=== PATIENT | male | born 1960 | race Caucasian/White ===

== ENCOUNTER → 2019-05-05 08:51 | Outpatient (BNVA) | payer SELFPAY | PROVIDERS: Family Provider Family Medicine; PCP Family Medicine; Visit Provider Nurse Practitioner Family | DX: E11.9 Type 2 diabetes mellitus without complications (principal); I10 Essential (primary) hypertension; E78.5 Hyperlipidemia, unspecified | CPT/HCPCS: 80053; 80061; 83036; 85025 ==

== ENCOUNTER → 2019-08-26 16:41 | Outpatient (BNVA) | payer SELFPAY | PROVIDERS: Family Provider Family Medicine; PCP Family Medicine; Visit Provider Nurse Practitioner | DX: E11.65 Type 2 diabetes mellitus with hyperglycemia (principal); E78.5 Hyperlipidemia, unspecified; I10 Essential (primary) hypertension; E11.9 Type 2 diabetes mellitus without complications | CPT/HCPCS: 80053; 80061; 81000; 83036; 83721 ==

== ENCOUNTER → 2019-11-27 10:07 | Outpatient (BNVA) | payer SELFPAY | PROVIDERS: Family Provider Family Medicine; PCP Family Medicine; Visit Provider Nurse Practitioner | DX: E11.65 Type 2 diabetes mellitus with hyperglycemia (principal); I10 Essential (primary) hypertension; E78.2 Mixed hyperlipidemia | CPT/HCPCS: 80053; 80061; 81000; 83036 ==

== ENCOUNTER → 2020-10-12 08:19 | Outpatient (BNVA) | payer SELFPAY | PROVIDERS: Family Provider Family Medicine; PCP Nurse Practitioner; Visit Provider Nurse Practitioner | DX: Z01.89 Encounter for other specified special examinations (principal) ==

== ENCOUNTER → 2020-12-22 15:25 | Outpatient (BNVA) | payer OTHER, SELFPAY | PROVIDERS: Family Provider Family Medicine; PCP Nurse Practitioner; Visit Provider Nurse Practitioner Family | DX: Z20.822 Contact with and (suspected) exposure to COVID-19 (principal); J06.9 Acute upper respiratory infection, unspecified; U07.1 COVID-19 | CPT/HCPCS: 87426 ==

== ENCOUNTER 2020-12-24 11:04 | Outpatient (CLI) | payer OTHER, SELFPAY | END 2020-12-24 11:05 | disposition home or self-care (01) | LOC: OPS 11:13 | PROVIDERS: PCP Nurse Practitioner; Visit Provider Nurse Practitioner | DX: U07.1 COVID-19 (principal) | CPT/HCPCS: 96365 ==

== ENCOUNTER → 2021-04-05 09:34 | Outpatient (BNVA) | payer SELFPAY | PROVIDERS: PCP Nurse Practitioner; Visit Provider Dermatology | DX: Z01.89 Encounter for other specified special examinations (principal) ==

== ENCOUNTER → 2021-10-04 10:14 | Outpatient (BNVA) | payer SELFPAY | PROVIDERS: PCP Nurse Practitioner; Visit Provider Dermatology | DX: Z01.89 Encounter for other specified special examinations (principal) ==

== ENCOUNTER 2022-02-18 16:42 | Emergency (ER) | payer SELFPAY ==
[2022-02-18 16:51] VITALS: BP 114/73; PULSE 77; RESP 15; TEMP 36.6; O2SAT 96; BMI 31.1
[2022-02-18 17:05] LABS: Glucose Point of Care 107 mg/dL (70-110)
[2022-02-18 17:47] VITALS: BP 130/82; PULSE 76; RESP 17; O2SAT 95
[2022-02-18 17:58] LABS: Basophils # 0.1 10^3/uL (0.0-0.1); Basophils % 0.9 %; Eosinophils # 0.3 10^3/uL (0.0-0.8); Eosinophils % 2.2 %; Lymphocytes # 2.3 10^3/uL (0.8-4.8); Lymphocytes % 18.2 %; Mean Corpuscular HGB Conc 34.1 g/dL (30.0-36.0); Mean Corpuscular Hemoglobin 30.7 pg (28.0-34.0); Mean Corpuscular Volume 90.2 fl (80-94); Mean Platelet Volume 9.8 fL (7.4-10.4); Monocytes # 0.8 10^3/uL (0.2-0.9); Monocytes % 6.3 %; Neutrophils # 9.02 10^3/uL (1.8-7.7); Neutrophils % 72.1 %; Nucleated Red Blood Cells % 0 %; Platelet Count 231 10^3/cmm (130-400); Red Blood Count 4.88 10^6/uL (4.1-5.3); Red Cell Distribution Width 13.3 % (12.1-15.1); White Blood Count 12.5 10^3/uL (4.0-10.0)
--- NOTE | 2022-02-18 18:10 | XRR_ITS ---
PROCEDURE INFORMATION: Exam: XR Chest Exam date and time: 02/18/2022 6:21 PM Age: 61 years old Clinical indication: Chest wall pain; Additional info: Cp TECHNIQUE: Imaging protocol: Radiologic exam of the chest. Views: 1 view. COMPARISON: CR XR chest 1V [id number] 02/03/2019 7:18 PM FINDINGS: Lungs: Unremarkable. No consolidation. Pleural spaces: Unremarkable. No pleural effusion. No pneumothorax. Heart/Mediastinum: Unremarkable. No cardiomegaly. Bones/joints: Unremarkable. XR/XR chest 1V portable [id number] IMPRESSION: No acute findings.
--- NOTE | 2022-02-18 18:10 | CTR_ITS ---
PROCEDURE INFORMATION: Exam: CT Abdomen And Pelvis With Contrast Exam date and time: 02/18/2022 6:46 PM Age: 61 years old Clinical indication: Abdominal pain; Localized; Lower; Prior surgery; Surgery type: Hernia repair; Additional info: Lower abdominal pain, constipation and nausea TECHNIQUE: Imaging protocol: Computed tomography of the abdomen and pelvis with contrast. Radiation optimization: All CT scans at this facility use at least one of these dose optimization techniques: automated exposure control; mA and/or kV adjustment per patient size (includes targeted exams where dose is matched to clinical indication); or iterative reconstruction. Contrast material: OMNI 350; Contrast volume: 100 ml; Contrast route: INTRAVENOUS (IV); COMPARISON: CR (CHEST, ) 02/18/2022 6:21 PM RADIATION DOSE METRICS: Total DLP (mGy-cm): 843.6 FINDINGS: Lungs: Emphysematous changes. Bibasilar atelectasis. Diaphragm: Small hiatal hernia. Liver: Normal. No mass. Gallbladder and bile ducts: Normal. No calcified stones. No ductal dilation. Pancreas: Normal. No ductal dilation. Spleen: Normal. No splenomegaly. Adrenal glands: Normal. No mass. Kidneys and ureters: Normal. No hydronephrosis. Stomach and bowel: Distal descending and sigmoid colon wall thickening with surrounding edema consistent with a colitis. Diverticulosis without diverticulitis. Appendix: No evidence of appendicitis. Intraperitoneal space: Unremarkable. No free air. No significant fluid collection. Vasculature: Unremarkable. No abdominal aortic aneurysm. Lymph nodes: Unremarkable. No enlarged lymph nodes. Urinary bladder: Unremarkable as visualized. Reproductive: Unremarkable as visualized. Bones/joints: Unremarkable. No acute fracture. Soft tissues: Unremarkable. CT/CT abdomen pelvis w con* [id number] IMPRESSION: 1. Distal descending and sigmoid colon wall thickening with surrounding edema consistent with a colitis. 2. Diverticulosis without diverticulitis. 3. Emphysematous changes. 4. Bibasilar atelectasis. 5. Small hiatal hernia.
--- NOTE | 2022-02-18 18:11 | ECG_ITS ---
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 Measurements Intervals [place] Rate: 75 P: 45 NV: 170 QRS: 42 QRSD: 89 T: 62 QT: 373 QTc: 418 Interpretive Statements SINUS RHYTHM Compared to ECG 02/03/2019 18:21:40 No significant changes Electronically Signed On 02-19-2022 10:15:23 CDT by Osman Galeana M.D. [id number]
--- NOTE | 2022-02-18 18:12 | W.ED.ABDPA2 ---
HPI - Abdominal Pain General: Chief Complaint: Abdominal Pain Stated Complaint: Abd Pain Time Seen by Provider: 02/18/22 17:55 History of Present Illness: Patient is a 61-year-old male who comes to the ED with abdominal pain. Past medical history of hyperlipidemia, hypertension and diabetes with long-term insulin use. symptoms started this morning when he woke up. He rates the pain currently an 8 out of 10. Abdominal pain is located in both left and right lower quadrants of his abdomen. He endorses having some constipation with hard stools with some red blood. Endorses nausea and decreased appetite. Denies any fevers, emesis or bladder symptoms. He has had a couple abdominal hernias repaired surgically but no other abdominal surgeries. Patient states that yesterday he had an episode of chest pain with diaphoresis that started while at rest. Chest pain lasted for just about an hour. His wanted him to come get checked out in the ED at that time but he decided not to. He is not having any current chest pain or shortness of breath. Associated Symptoms: Reports constipation, hematochezia (Red blood) and nausea; Denies chills, diarrhea, dysuria, fever(s), hematuria and vomiting Review of Systems Const: Denies: fever(s), chills or fatigue Eyes: Denies: change in vision or eye discomfort ENMT: Denies: throat pain, odynophagia, nasal discharge or nasal congestion Card: Reports: chest pain (Episode of chest pain yesterday); Denies: palpitations, edema, swelling of feet/ankles, dyspnea on exertion or orthopnea Resp: Denies: dyspnea, productive cough or non-productive cough GI: Reports: abdominal pain, nausea, constipation and hematochezia (Red blood); Denies: vomiting or diarrhea : Denies: flank pain, difficulty urinating, dysuria or hematuria Musc: Denies: neck pain, back pain or extremity swelling Skin/Breast: Denies: rash or new lesions Neuro: Denies: headache(s), numbness in extremities or weakness in extremities PFSH ED PFSH: Medical History Arthritis Diabetes mellitus with hyperglycemia, with long-term current use of insulin Erectile dysfunction Gout Hypertension Mixed hyperlipidemia Personal history of nicotine dependence Surgical History History of colonoscopy with polypectomy History of hernia repair Family History Other Diabetes Myocardial infarction Social History Smoking and tobacco status: current every day smoker Second hand smoke exposure: Yes Smoking risk assessment/counseling performed?: Yes Alcohol intake: never Desire information about alcohol rehabilitation?: No Counseling given: No Desire information about substance/drug rehabilitation?: No Counseling given: No Adopted: No Caregiver/support person: No Lives independently: Yes Household members: spouse Housing: House Marital status: Number of children: 3 service: Yes branch: [employer] 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 History of recent travel: No Current gender identity: Male Physical Exam Const: COMMON NORMALS: patient oriented x3 and alert GENERAL APPEARANCE: cooperative HENMT: COMMON NORMALS: normocephalic HEAD & SCALP: normocephalic MOUTH: Normal oral and palatal mucosa present THROAT: posterior oropharynx normal and uvula midline Neck/C-Spine: COMMON NORMALS: supple GENERAL: Yes normal visual inspection Resp: COMMON NORMALS: normal respiratory effort, No retractions, No use of accessory muscles and clear to auscultation bilaterally AUSCULTATION: clear to auscultation bilaterally Cardio: COMMON NORMALS: regular rate, regular rhythm, S1 normal heart sound present, S2 normal heart sound present, No gallops present (Cardio), No clicks present (Cardio), No murmurs present (Cardio) and Peripheral pulses 2+ throughout RATE: regular rate RHYTHM: regular rhythm HEART SOUNDS: S1 normal heart sound present and S2 normal heart sound present PERIPHERAL PULSES: Peripheral pulses 2+ throughout GI: COMMON NORMALS: Normal to inspection, nondistended, normoactive bowel sounds present, Soft to palpation and no masses PALPATION: Yes Soft to palpation and Yes Tenderness to palpation present (GI) (Severe tenderness to light palpation) Details: LLQ and RLQ : COMMON NORMALS: Yes no CVA tenderness BLADDER/KIDNEY EXAM: Yes no CVA tenderness Back/Pelvis: COMMON NORMALS: no CVA tenderness Extremity: COMMON NORMALS: normal to inspection Neuro: COMMON NORMALS: patient oriented x3 SENSORIUM/ORIENTATION: Yes alert GAIT: Yes Normal gait present Skin: GENERAL SKIN EXAM: dry skin Course Vital Signs: Vital signs: Vital Signs Temperature 97.8 F 02/18/22 16:51 Pulse Rate 76 02/18/22 19:00 Respiratory Rate 20 H 02/18/22 19:38 Blood Pressure 132/83 02/18/22 19:00 Pulse Oximetry 73 L 02/18/22 19:00 Oxygen Delivery Me thod 02/18/22 19:00 MDM - Abdominal Pain Medical Decision Making Patient is a 61-year-old male comes to the ED with abdominal pain and constipation. History of hernia surgery. He also reports having an episode of diaphoresis and chest pain yesterday. Denies any current chest pain. Vitals are stable. Exam of patient shows no obvious severe tenderness to light palpation of the left and right lower quadrant of the abdomen. Rest of exam is benign. White blood cell count 12.5 and sodium of 130. Rest of labs were unremarkable. Troponin negative. EKG showed no ST segment elevation or depression seen. Chest x-ray showed no acute findings. Abdominal CT scan showed colitis. Patient's symptoms were controlled after getting IV fluid bolus, Dilaudid and Zofran. He was given p.o. Cipro and Flagyl here in the ED and is able to tolerate p.o. meds and fluids. He is stable for discharge home and diagnosed with colitis. He was sent home with a prescription for hydrocodone for pain, Flagyl, Cipro and Zofran. Given strict return to ED precautions. Follow-up with PCP within the next week for reevaluation. Patient understood and agreed with plan. Lab Data I reviewed the patient's lab results. : 02/18/22 17:47 02/18/22 17:47 Labs/Radiology: Radiology Impressions Abdomen/Pelvis CT 02/18/22 18:10 IMPRESSION: 1. Distal descending and sigmoid colon wall thickening with surrounding edema consistent with a colitis. 2. Diverticulosis without diverticulitis. 3. Emphysematous changes. 4. Bibasilar atelectasis. 5. Small hiatal hernia. Chest X-Ray 02/18/22 18:10 IMPRESSION: No acute findings. Laboratory Results WBC 12.5 10^3/uL (4.0-10.0) H 02/18/22 17:47 RBC 4.88 10^6/uL (4.1-5.3) 02/18/22 17:47 Hgb 15.0 g/dL (11.7-16.6) 02/18/22 17:47 Hct 44.0 % (42.0-52.0) 02/18/22 17:47 MCV 90.2 fl (80-94) 02/18/22 17:47 MCH 30.7 pg (28.0-34.0) 02/18/22 17:47 MCHC 34.1 g/dL (30.0-36.0) 02/18/22 17:47 RDW 13.3 % (12.1-15.1) 02/18/22 17:47 Plt Count 231 10^3/cmm (130-400) 02/18/22 17:47 MPV 9.8 fL (7.4-10.4) 02/18/22 17:47 Neut % (Auto) 72.1 % 02/18/22 17:47 Lymph % (Auto) 18.2 % 02/18/22 17:47 [place] % (Auto) 6.3 % 02/18/22 17:47 Eos % (Auto) 2.2 % 02/18/22 17:47 Baso % (Auto) 0.9 % 02/18/22 17:47 Neut # (Auto) 9.02 10^3/uL (1.8-7.7) H 02/18/22 17:47 Lymph # (Auto) 2.3 10^3/uL (0.8-4.8) 02/18/22 17:47 [place] # (Auto) 0.8 10^3/uL (0.2-0.9) 02/18/22 17:47 Eos # (Auto) 0.3 10^3/uL (0.0-0.8) 02/18/22 17:47 Baso # (Auto) 0.1 10^3/uL (0.0-0.1) 02/18/22 17:47 Nucleated RBC % (auto) 0 % 02/18/22 17:47 Nucleated RBCs # 0.0 /100WBC 02/18/22 17:47 Sodium 130 mmol/L (136-145) L 02/18/22 17:47 Potassium 4.2 mmol/L (3.5-5.1) 02/18/22 17:47 Chloride 96 mmol/L (98-107) L 02/18/22 17:47 Carbon Dioxide 24 mmol/L (22-29) 02/18/22 17:47 Anion Gap 14.2 (5-19) 02/18/22 17:47 BUN 21 mg/dL (8-23) 02/18/22 17:47 Creatinine 1.1 mg/dL (0.7-1.2) 02/18/22 17:47 GFR Calculation 67.6 mL/min (90-130) L 02/18/22 17:47 Glucose 100 mg/dL (65-115) 02/18/22 17:47 POC Glucose 107 mg/dL (70-110) 02/18/22 17:03 Calculated Osmolality 273 mOsm/kg (285-295) L 02/18/22 17:47 Calcium 9.4 mg/dL (8.5-10.5) 02/18/22 17:47 Total Bilirubin 0.6 mg/dL (0.15-1.2) 02/18/22 17:47 AST 27 U/L (0-40) 02/18/22 17:47 ALT 61 U/L (0-41) H 02/18/22 17:47 Alkaline Phosphatase 83 U/L (40-130) 02/18/22 17:47 Troponin T Baseline 15 ng/L (0-15) 02/18/22 17:47 Troponin T 120 Minute 11.73 ng/L (0-15) 02/18/22 19:45 Delta Troponin T -3.27 ABS# (0-10) L 02/18/22 19:45 Total Protein 8.0 g/dL (6.6-8.7) 02/18/22 17:47 Albumin 4.2 g/dL (3.5-5.2) 02/18/22 17:47 Globulin 3.8 g/dL (1.3-4.6) 02/18/22 17:47 Lipase 46 U/L (13-60) 02/18/22 17:47 EKG Data EKG 1: EKG interpretation date: 02/18/22 Computer generated interpretation: Daily [address] [id number] Electrocardiograph Report Signed Patient: Otis Avila Unit #: [id number] : 1960 Age/Sex: 61 / M ADM Date: 02/18/22 Loc: ER Room/Bed: Attending Dr: Ordering Provider/Ordering MD: Jeremías Muir Date of Service: 02/18/22 Procedure(s): ECG 12 lead EKG Accession Number(s): [id number] Report Number: [id number] ? [facility] ? Test Date:? ? 2022-02-18 Pat Name: ? ? Oits Avila ? Department: ? Patient ID: ? [id number] ? Room: ? Gender: ? ? ? Male ? 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 Requested By: Jeremías Muir Order Number: [id number]? Reading MD: ? Osman Galeana M.D. ? Measurements Intervals? [place]? Rate: ? 75 ? P:? 45 ME: ? 170? QRS:? 42 QRSD: ? 89 ? T:? 62 QT: ? 373? QTc:? 418? Interpretive Statements SINUS RHYTHM Compared to ECG 02/03/2019 18:21:40 No significant changes Electronically Signed On 02-19-2022 10:15:23 CDT by Osman Galeana M.D. [id number] Dictated By: Osman Galeana MD Signed By: Osman Galeana MD Signed Date/Time 02/19/22 1016 DD/ 27 Discharge Plan Discharge Patient Disposition: Home Clinical Impression: Colitis Condition: Stable Prescriptions: New ciprofloxacin HCl 500 mg tablet 500 mg PO BID 7 Days Qty: 14 0RF metronidazole 500 mg tablet 500 mg PO Q8H 7 Days Qty: 21 0RF ondansetron 4 mg tablet,disintegrating 4 mg PO Q8H PRN (Reason: nausea and vomiting) Qty: 20 0RF No Action vardenafil [Levitra] 20 mg tablet 20 mg PO DAILY Qty: 3 0RF Trulicity 1.5 mg/0.5 mL pen injector 1.5 mg SUBCUT .weekly Qty: 6 2RF (DME) pen needle, diabetic 33 gauge x 5/32 needle See Rx Instructions .ROUTE .MEDSUPPLY Qty: 100 5RF Rx Instructions: 1 time day atorvastatin 20 mg tablet 20 mg PO DAILY Qty: 30 2RF Jardiance 25 mg tablet 25 mg PO QAM Qty: 30 2RF fenofibrate nanocrystallized [Tricor] 145 mg tablet 145 mg PO DAILY Qty: 30 2RF fluoxetine [Prozac] 40 mg capsule 40 mg PO QAM Qty: 30 2RF glipizide 5 mg tablet extended release 24 hr 5 mg PO DAILY Qty: 30 2RF metformin 500 mg tablet extended release 24 hr 2,000 mg PO DAILY Qty: 120 2RF lisinopril 20 mg tablet 20 mg PO DAILY 30 Days Qty: 30 2RF Levemir FlexTouch U-100 Insuln 100 unit/mL (3 mL) insulin pen See Rx Instructions SUBCUT DAILY Qty: 15 0RF Rx Instructions: up to 50 units SUBCUT daily; Discharge Orders: Discharge ED (Routine); Ordered 02/18/22 Ordered By: Jeremías Muir Referrals: Michaela Taylor, DESKTOP SPECIALIST-C [Primary Care Provider] - Discharge Diet: Advance as tolerated Discharge Activity: Increase activity as tolerated Patient Instructions: Colitis (ED), Opioid Safety Activity Restrictions/Additional Instructions: Follow-up with medical provider as directed in the next 5 to 7 days for reevaluation. Take medications as prescribed. Return to the ER or your medical provider if condition worsens. Please read and understand discharge instructions. Thank you for choosing [facility] for your healthcare needs today. Please realize this is an emergency room and that we are providing you with a medical screening exam and this may not be complete and all inclusive of all the testing and or work up that you may need to determine your ailment or severity of your illness. It is very important that you follow up as instructed or that you return to the Emergency Department should you have concerns or if your condition changes or worsens in any way. 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
[2022-02-18 18:16] LABS: Alanine Aminotransferase 61 U/L (0-41); Albumin Level 4.2 g/dL (3.5-5.2); Alkaline Phosphatase 83 U/L (40-130); Anion Gap 14.2 (5-19); Aspartate Amino Transferase 27 U/L (0-40); Blood Urea Nitrogen 21 mg/dL (8-23); Calcium 9.4 mg/dL (8.5-10.5); Carbon Dioxide 24 mmol/L (22-29); Chloride 96 mmol/L (98-107); Globulin 3.8 g/dL (1.3-4.6); Glomerular Filtration Rate 67.6 mL/min (90-130); Glucose 100 mg/dL (65-115); Lipase 46 U/L (13-60); Osmolality Calculated 273 mOsm/kg (285-295); Potassium 4.2 mmol/L (3.5-5.1); Sodium 130 mmol/L (136-145); Total Bilirubin 0.6 mg/dL (0.15-1.2)
[2022-02-18 18:20] VITALS: BP 130/82; PULSE 77; RESP 16; O2SAT 94
[2022-02-18 18:42] LABS: Troponin(5th) Baseline 15 ng/L (0-15)
[2022-02-18] MEDS: iohexol 350 mg/mL 100 mL Btl IV (18:50)
[2022-02-18 18:57] VITALS: RESP 17
[2022-02-18] MEDS: ondansetron 2 mg/ML SDV 2 mL 4 MG IVP (18:57)
[2022-02-18] MEDS: morphine 4 mg/mL SDV 1 mL IVP (18:57)
[2022-02-18] MEDS: sodium chloride 0.9% 500 ML 999 ML IV (18:57)
[2022-02-18 19:00] VITALS: BP 132/83; PULSE 76; RESP 20; O2SAT 73
[2022-02-18] MEDS: metroNIDAZOLE 500 MG Tablet PO (19:30)
[2022-02-18] MEDS: ciprofloxacin 500 mg Tablet PO (19:30)
[2022-02-18 19:38] VITALS: RESP 20
[2022-02-18] MEDS: HYDROmorphone 1 mg/mL INJ 1 mL IVP (19:38)
[2022-02-18 20:31] LABS: Troponin 5 2HR 11.73 ng/L (0-15)
[2022-02-18 20:41] LABS: Troponin 5 2HR Delta -3.27 ABS# (0-10)
== END 2022-02-18 21:16 | disposition home or self-care (01) ==
PROVIDERS: Emergency Provider Physician Assistant; PCP Nurse Practitioner
DX: K52.9 Noninfective gastroenteritis and colitis, unspecified (principal); Z79.85 Long-term (current) use of injectable non-insulin antidiabetic drugs; Z79.84 Long term (current) use of oral hypoglycemic drugs; Z79.4 Long term (current) use of insulin; F17.210 Nicotine dependence, cigarettes, uncomplicated; E11.9 Type 2 diabetes mellitus without complications; I10 Essential (primary) hypertension; E78.2 Mixed hyperlipidemia
CPT/HCPCS: 36416; 71045; 74177; 80053; 82962; 83690; 84484; 85025; 93005; 96374; 96375; 99285; J1170; J2270; J2405; J7040; Q9967

== ENCOUNTER → 2022-04-04 12:49 | Outpatient (BNVA) | payer SELFPAY | PROVIDERS: PCP Nurse Practitioner; Visit Provider Dermatology | DX: Z01.89 Encounter for other specified special examinations (principal) | CPT/HCPCS: 81000 ==

== ENCOUNTER → 2022-10-12 09:00 | Outpatient (BNVA) | payer SELFPAY | PROVIDERS: PCP Family Medicine; Visit Provider Family Medicine | DX: E11.65 Type 2 diabetes mellitus with hyperglycemia (principal); Z79.4 Long term (current) use of insulin | CPT/HCPCS: 80053; 80061; 83036; 85025 ==

== ENCOUNTER 2022-10-18 13:46 | Outpatient (CLI) | payer SELFPAY ==
--- NOTE | 2022-10-18 14:15 | CT_ITS ---
WS: [id number] LDCT LUNG CANCER SCREENING TECHNIQUE: Noncontrast CT of the chest with coronal and sagittal reformatted images. CLINICAL INFORMATION: lung cancer screening COMPARISON: None. DLP: 93.47 mGy.cm DIvol: Mean CTDIvol: 1.90 (mGy) All CT scans at [facility] use at least one of these dose optimization techniques: automat ed exposure control; mA and/or kV adjustment per patient size (includes targeted exams where dose is matched to clinical indication); or iterative reconstruction. FINDINGS:3.4 mm noncalcified nodule RIGHT lower lobe. RIGHT middle lobe nodule measuring 3.5 mm. Tiny nodule LEFT upper lobe measuring 3 mm. Subpleural nodule LEFT upper lobe anteriorly measuring 4 mm. Small noncalcified nodule LEFT upper lobe medially measuring 3.8 mm. Subpleural nodule LEFT lower lob e posterior medially measuring 5.3 mm. Mild chronic emphysematous changes. Normal caliber thoracic aorta. Aortic calcification. Coronary calcification. No mediastinal or hilar lymphadenopathy. Adrenal glands are normal. Small esophageal hiatal hernia. No axillary lymphadenopathy. Mild thoracic curve. Mild thoracic kypho sis. Hypertrophic changes mid and lower thoracic spine. CT/CT lung screening [id number] IMPRESSION: LUNG-RADS: 2-Benign Appearance or Behavior FOLLOW UP: 12 Month: Continue annual screening with LDCT
== END 2022-10-18 13:47 | disposition home or self-care (01) ==
PROVIDERS: PCP Family Medicine; Visit Provider Family Medicine
DX: Z12.2 Encounter for screening for malignant neoplasm of respiratory organs (principal); F17.219 Nicotine dependence, cigarettes, with unspecified nicotine-induced disorders
CPT/HCPCS: 71271; 80053; 80061; 83036; 85025

== ENCOUNTER → 2023-04-03 10:22 | Outpatient (BNVA) | payer SELFPAY | PROVIDERS: PCP Family Medicine; Visit Provider Family Medicine | DX: Z01.89 Encounter for other specified special examinations (principal) ==

== ENCOUNTER 2023-06-05 10:18 | Outpatient (CLI) | payer SELFPAY ==
--- NOTE | 2023-06-05 10:30 | CT_ITS ---
WS: [id number] CT HEAD NONCONTRAST HISTORY: balance issues TECHNIQUE: Contiguous axial imaging performed through the brain in 2.0 mm imaging. Bone and soft tiss ue windows. Sagittal and coronal reformats reviewed. All CT scans at [facility] use at least one of these dose optimization techniques: automated exposure control; mA and/or kV adjustment per pa tient size (includes targeted exams where dose is matched to clinical indication); or iterative recon struction. DLP: 1150.24 mGy.cm COMPARISON: None available. No acute intracranial hemorrhage, midline shift or mass effect. Very mild volume loss and atrophy and small vessel disease. Ventricles: Normal size with no hydrocephalus. No intra displacement of cerebellar tonsils. Paranasal sinuses: Mild mucoperiosteal thickening sphenoid sinuses. Mastoid air cells: Well pneumatized. Calvarium and scalp: Skull is intact with no soft tissue edema or swelling. IMPRESSION: 1. No acute intracranial hemorrhage or edema. 2. Mild atrophy and small vessel ischemic disease.
== END 2023-06-05 10:19 | disposition home or self-care (01) ==
LOC: RAD 10:18
PROVIDERS: PCP Family Medicine; Visit Provider Family Medicine
DX: R26.89 Other abnormalities of gait and mobility (principal); I67.89 Other cerebrovascular disease
CPT/HCPCS: 70450

== ENCOUNTER 2023-07-05 12:27 | Emergency (ER) | payer MEDICARE, SELFPAY ==
[2023-07-05 12:42] VITALS: BP 106/65; PULSE 77; RESP 16; TEMP 36.4; O2SAT 96; BMI 30.8
--- NOTE | 2023-07-05 13:25 | ED_ITS ---
Documented by User: CANDELARIO Jimenez 07/05/23 14:26 HPI - Skin/Abscess/Foreign Bdy General: Chief complaint: Skin/Abscess/Foreign Body Stated complaint: Sent by danyel amaral Time Seen by Provider: 07/05/23 13:25 History of Present Illness: 63-year-old male patient comes in today for complaints of abscess to the left chest wall. Patient was seen at primary care and attempt for I&D was performed but not successful. Patient was referred to the ER for further evaluation and treatment. Patient appears nontoxic. Patient denies any fever or nausea or vomiting. Patient does have a history of diabetes. Review of Systems General: Reports: 10 or more systems reviewed and unremarkable except in HPI and below PFSH ED PFSH: Medical History Depression with anxiety Diabetes mellitus with hyperglycemia, with long-term current use of insulin Erectile dysfunction Gout Personal history of nicotine dependence Mixed hyperlipidemia Arthritis Hypertension Surgical History History of colonoscopy with polypectomy History of hernia repair Family History Brother Cancer bone, brain Other Diabetes Hyperlipidemia Hypertension Myocardial infarction Stroke Denies family history of CAD (coronary artery disease) Clotting disorder Dementia Psychiatric illness Chronic kidney disease (CKD) Anesthesia complication Bleeding disorder Lung disease Social History Smoking and tobacco/nicotine status: current some day tobacco/nicotine user smokeless tobacco Smokeless tobacco user: chewing tobacco Second hand smoke exposure: Yes Alcohol intake: never Substance/Drug Use: never Adopted: No Caregiver/support person: No Lives independently: Yes Household members: spouse Housing: House Marital status: Number of children: 3 service: Yes branch: [employer] 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 6 cm x 3 cm circular. Blanching of the skin is noted. Tenderness is noted at deep palpation. Bedside ultrasound was p erformed noting a large pocket of fluid confirming drainable abscess. Resp: COMMON NORMALS: normal respiratory effort GI: COMMON NORMALS: Soft to palpation PALPATION: Yes Soft to palpation : COMMON NORMALS: Yes normal external exam Back/Pelvis: COMMON NORMALS: thoracic and lumbar spine normal to inspection Extremity: COMMON NORMALS: full ROM Neuro: SENSORIUM/ORIENTATION: Yes alert Skin: NARRATIVE SKIN EXAM: Abscess left chest wall Procedures Abscess I/D Site: chest Side (if applicable): left Sedation/analgesia: none Local Anesthetic: lidocaine 2% and with epi Amount of anesthesia used (mL): 4 Technique: incised with #11 blade Amount of fluid expressed (mL): 40 Irrigation: Yes Packing used?: plain (8 cm) Course Vital Signs: Vital signs: Vital Signs Temperature 97.6 F 07/05/23 12:42 Pulse Rate 71 07/05/23 14:29 Respiratory Rate 18 07/05/23 14:29 Blood Pressure 106/65 07/05/23 12:42 Pulse Oximetry 99 07/05/23 14:29 Oxygen Delivery Me thod Room Air 07/05/23 12:42 MDM - Skin/Abscess/Foreign Bdy Medicial Decision Making Patient comes in today for complaints of abscess to left chest wall. On exam patient has a large abscess to the left chest wall. Approximately 6 x 3 cm ovoid. Tenderness is noted to the area. No significant surrounding erythema is noted. Differential diagnosis includes but not limited to abscess, mastitis, carcinoma. Under local anesthetic a incision was made and wound was drained. Abscess was confirmed with bedside ultrasound. Patient tolerated incision and drainage well. A wick was placed that was approximately 8 cm into the wound. Patient was instructed remove it and 3 days. Patient was placed on Bactrim. Follow-up appointment with surgeon for further evaluation and treatment as needed. Return to ED for worsening symptoms. Patient reported understanding. Culture collected and sent to lab. No radiology studies performed this visit Discharge Plan Discharge Patient Disposition: Home Clinical Impression: Abscess Condition: Stable Prescriptions: New sulfamethoxazole-trimethoprim 800-160 mg tablet 1 tab PO BID 7 Days Qty: 14 0RF No Action fenofibrate nanocrystallized [Tricor] 145 mg tablet 145 mg PO DAILY Qty: 90 2RF sucralfate [Carafate] 1 gram tablet 1 g PO BID Qty: 60 0RF bupropion HCl [Wellbutrin XL] 300 mg tablet extended release 24 hr 300 mg PO QAM Qty: 30 0RF ondansetron 4 mg tablet,disintegrating 4 mg PO Q8H PRN (Reason: nausea and vomiting) Qty: 20 0RF (DME) pen needle, diabetic 33 gauge x 5/32 needle See Rx Instructions .ROUTE .MEDSUPPLY Qty: 100 5RF Rx Instructions: 1 time day Jardiance 25 mg tablet 25 mg PO QAM Qty: 30 1RF losartan 50 mg tablet 50 mg PO DAILY Qty: 60 0RF Victoza 3-Zohaib 0.6 mg/0.1 mL (18 mg/3 mL) pen injector 1.8 mg SUBCUT DAILY Qty: 9 2RF escitalopram oxalate 20 mg tablet 20 mg PO DAILY Qty: 60 0RF gabapentin 300 mg capsule 300 mg PO DAILY Qty: 60 0RF atorvastatin [Lipitor] 40 mg tablet 40 mg PO DAILY Qty: 90 2RF glipizide 5 mg tablet extended release 24hr See Rx Instructions .ROUTE .COMPLEX Qty: 270 1RF Dose Instruction: Take 3 tablets by mouth once daily Rx Instructions: Take 3 tablets by mouth once daily omeprazole 40 mg capsule,delayed release(DR/EC) 40 mg PO DAILY Levemir FlexPen 100 unit/mL (3 mL) insulin pen See Rx Instructions SUBCUT DAILY Rx Instructions: up to 50 units SUBCUT daily; Discharge Orders: Discharge ED (Routine); Ordered 07/05/23 Ordered By: Michael Luna Referrals: Neftaly Keys MD [Primary Care Provider] - Discharge Diet: Usual diet Discharge Activity: Increase activity as tolerated Patient Instructions: Abscess (ED), Abscess Incision and Drainage (DC) Activity Restrictions/Additional Instructions: Remove wick in 3 days. Take oral antibiotic sulfamethoxazole trimethoprim 1 tablet twice a day for 7 days. Drink plenty of water with medications. Follow- up with primary care in 1 week. Case management will contact you regarding follow-up with surgeon for further evaluation and treatment as needed. Return to ED for worsening symptoms such as inability to hold food down, fever greater than 100.4, or new concerns. Coding Level of Care Code ED Floor Helper for Chg Fwd Documented by User: Joseph Carnes DO 07/05/23 17:16 HPI - Skin/Abscess/Foreign Bdy General: Chief complaint: Skin/Abscess/Foreign Body Stated complaint: Sent by danyel amaral Time Seen by Provider: 07/05/23 13:25 PFSH ED PFSH: Medical History Depression with anxiety Diabetes mellitus with hyperglycemia, with long-term current use of insulin Erectile dysfunction Gout Personal history of nicotine dependence Mixed hyperlipidemia Arthritis Hypertension Surgical History History of colonoscopy with polypectomy History of hernia repair Family History Brother Cancer bone, brain Other Diabetes Hyperlipidemia Hypertension Myocardial infarction Stroke Denies family history of CAD (coronary artery disease) Clotting disorder Dementia Psychiatric illness Chronic kidney disease (CKD) Anesthesia complication Bleeding disorder Lung disease Social History Smoking and tobacco/nicotine status: current some day tobacco/nicotine user smokeless tobacco Smokeless tobacco user: chewing tobacco Second hand smoke exposure: Yes Alcohol intake: never Substance/Drug Use: never Adopted: No Caregiver/support person: No Lives independently: Yes Household members: spouse Housing: House Marital status: Number of children: 3 service: Yes branch: [employer] 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 On exam patient has a large abscess to the left chest wall. Approximately 6 x 3 cm ovoid. Tenderness is noted to the area. No significant surrounding erythema is noted. Differential diagnosis includes but not limited to abscess, mastitis, carcinoma. Under local anesthetic a incision was made and wound was drained. Abscess was confirmed with bedside ultrasound. Patient tolerated incision and drainage well. A wick was placed that was approximately 8 cm into the wound. Patient was instructed remove it and 3 days. Patient was placed on Bactrim. Follow-up appointment with surgeon for further evaluation and treatment as needed. Return to ED for worsening symptoms. Patient reported understanding. Culture collected and sent to lab. Chart reviewed and patient discussed with midlevel. Agree with assessment and plan. Discharge Plan Discharge Patient Disposition: Home Clinical Impression: Abscess Condition: Stable Prescriptions: New sulfamethoxazole-trimethoprim 800-160 mg tablet 1 tab PO BID 7 Days Qty: 14 0RF No Action fenofibrate nanocrystallized [Tricor] 145 mg tablet 145 mg PO DAILY Qty: 90 2RF sucralfate [Carafate] 1 gram tablet 1 g PO BID Qty: 60 0RF bupropion HCl [Wellbutrin XL] 300 mg tablet extended release 24 hr 300 mg PO QAM Qty: 30 0RF ondansetron 4 mg tablet,disintegrating 4 mg PO Q8H PRN (Reason: nausea and vomiting) Qty: 20 0RF (DME) pen needle, diabetic 33 gauge x 5/32 needle See Rx Instructions .ROUTE .MEDSUPPLY Qty: 100 5RF Rx Instructions: 1 time day Jardiance 25 mg tablet 25 mg PO QAM Qty: 30 1RF losartan 50 mg tablet 50 mg PO DAILY Qty: 60 0RF Victoza 3-Zohaib 0.6 mg/0.1 mL (18 mg/3 mL) pen injector 1.8 mg SUBCUT DAILY Qty: 9 2RF escitalopram oxalate 20 mg tablet 20 mg PO DAILY Qty: 60 0RF gabapentin 300 mg capsule 300 mg PO DAILY Qty: 60 0RF atorvastatin [Lipitor] 40 mg tablet 40 mg PO DAILY Qty: 90 2RF glipizide 5 mg tablet extended release 24hr See Rx Instructions .ROUTE .COMPLEX Qty: 270 1RF Dose Instruction: Take 3 tablets by mouth once daily Rx Instructions: Take 3 tablets by mouth once daily omeprazole 40 mg capsule,delayed release(DR/EC) 40 mg PO DAILY Levemir FlexPen 100 unit/mL (3 mL) insulin pen See Rx Instructions SUBCUT DAILY Rx Instructions: up to 50 units SUBCUT daily; Discharge Orders: Discharge ED (Routine); Ordered 07/05/23 Ordered By: Michael Luna Referrals: Neftaly Keys MD [Primary Care Provider] - Discharge Diet: Usual diet Discharge Activity: Increase activity as tolerated Patient Instructions: Abscess (ED), Abscess Incision and Drainage (DC) Activity Restrictions/Additional Instructions: Remove wick in 3 days. Take oral antibiotic sulfamethoxazole trimethoprim 1 tablet twice a day for 7 days. Drink plenty of water with medications. Follow- up with primary care in 1 week. Case management will contact you regarding follow-up with surgeon for further evaluation and treatment as needed. Return to ED for worsening symptoms such as inability to hold food down, fever greater than 100.4, or new concerns. Coding Level of Care Code ED Floor Helper for Semaj Boo
[2023-07-05] MEDS: sulfamethoxazole-trimeth DS 160-800 mg Tablet 1 TAB PO (14:22)
[2023-07-05] MEDS: bacitracin ointment Pkt 1 EACH TOPICAL (14:22)
[2023-07-05 14:29] VITALS: PULSE 71; RESP 18; O2SAT 99
--- NOTE | 2023-07-06 04:03 | DCPLANNER ---
Message sent to General surg for a follow up on I&D Abscess
== END 2023-07-05 14:32 | disposition home or self-care (01) ==
PROVIDERS: Emergency Provider Nurse Practitioner Family; PCP Family Medicine
DX: L02.213 Cutaneous abscess of chest wall (principal); Z79.4 Long term (current) use of insulin; Z79.84 Long term (current) use of oral hypoglycemic drugs; E11.9 Type 2 diabetes mellitus without complications; E78.2 Mixed hyperlipidemia; I10 Essential (primary) hypertension; F17.220 Nicotine dependence, chewing tobacco, uncomplicated
CPT/HCPCS: 10060; 87070; 87075; 87205; 99283

== ENCOUNTER → 2023-07-18 12:37 | Outpatient (BNVA) | payer MEDICARE, SELFPAY | PROVIDERS: PCP Family Medicine; Visit Provider Surgery | DX: L02.213 Cutaneous abscess of chest wall (principal) | CPT/HCPCS: 10140; 87070; 87075; 87205; 99214 ==

== ENCOUNTER → 2023-07-25 14:29 | Outpatient (BNVA) | payer MEDICARE, SELFPAY | PROVIDERS: PCP Family Medicine; Visit Provider Surgery | DX: L02.213 Cutaneous abscess of chest wall | CPT/HCPCS: 99213 ==

== ENCOUNTER 2023-10-08 19:35 | Emergency (ER) | payer MEDICARE, SELFPAY ==
[2023-10-08 19:41] VITALS: BP 143/88; PULSE 68; RESP 16; TEMP 36.8; O2SAT 95
--- NOTE | 2023-10-08 19:55 | W.ED.SKABFB ---
HPI - Skin/Abscess/Foreign Bdy General: Chief complaint: Skin/Abscess/Foreign Body Stated complaint: dog bite left arm Time Seen by Provider: 10/08/23 19:47 Source: patient Mode of arrival: ambulatory Limitations: no limitations History of Present Illness: 63-year-old male states he is bit by a dog to his left forearm today. States that dog was unvaccinated is in possession of animal control he has puncture wounds to his left forearm he has minimal pain at this time is a diabetic he is unsure when his last tetanus was. Denies any other injuries at this time. Associated symptoms: Deny chills, fever(s), nausea or vomiting Review of Systems Const: Denies: fever(s), chills, body aches or change in appetite ENMT: Denies: throat pain or dental pain Card: Denies: chest pain Resp: Denies: dyspnea GI: Denies: abdominal pain, nausea, vomiting or diarrhea Musc: Denies: neck pain or back pain Skin/Breast: Denies: rash Neuro: Denies: headache(s) PFSH ED PFSH: Medical History Depression with anxiety Diabetes mellitus with hyperglycemia, with long-term current use of insulin Erectile dysfunction Gout Personal history of nicotine dependence Mixed hyperlipidemia Arthritis Hypertension Surgical History History of colonoscopy with polypectomy History of hernia repair Family History Brother Cancer bone, brain Other Diabetes Hyperlipidemia Hypertension Myocardial infarction Stroke Denies family history of CAD (coronary artery disease) Clotting disorder Dementia Psychiatric illness Chronic kidney disease (CKD) Anesthesia complication Bleeding disorder Lung disease Social History Smoking and tobacco/nicotine status: current some day tobacco/nicotine user smokeless tobacco Smokeless tobacco user: chewing tobacco Second hand smoke exposure: Yes Alcohol intake: never Substance/Drug Use: never Adopted: No Caregiver/support person: No Lives independently: Yes Household members: spouse Housing: House Marital status: Number of children: 3 service: Yes branch: [employer] 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 Do you think of yourself as: Straight/Heterosexual Current gender identity: Male Physical Exam Const: COMMON NORMALS: no acute distress, patient oriented x3 and healthy appearing HENMT: COMMON NORMALS: normocephalic and atraumatic HEAD & SCALP: normocephalic and atraumatic Neck/C-Spine: COMMON NORMALS: full ROM and supple Chest: COMMONS NORMALS: normal inspection of the chest Resp: COMMON NORMALS: normal respiratory effort Extremity: NARRATIVE EXTREMITY EXAM: Puncture wound to left forearm no large lacerations bleeding controlled Neuro: COMMON NORMALS: patient oriented x3, moves all extremities and no focal motor deficits Psych: COMMON NORMALS: mental status grossly normal, Normal thought process present and cooperative THOUGHT PROCESS: Normal thought process present Skin: COMMON NORMALS: no rashes or lesions noted GENERAL SKIN EXAM: no rashes or lesions noted Course Vital Signs: Vital signs: Vital Signs Temperature 98.2 F 10/08/23 19:41 Pulse Rate 68 10/08/23 19:41 Respiratory Rate 16 10/08/23 19:41 Blood Pressure 143/88 10/08/23 19:41 Pulse Oximetry 95 10/08/23 19:41 MDM - Skin/Abscess/Foreign Bdy Medicial Decision Making Patient presents here with dog bite to his left forearm bleeding is controlled does not require any sutures at this time will place him on Augmentin will update his tetanus patient states that animal control is can observe the dog for any signs of rabies informed him to follow-up with them and return if he needs rabies prophylaxis he understands agrees to plan Medical Records I reviewed the patient's medical records. No radiology studies performed this visit Discharge Plan Discharge Patient Disposition: Home Clinical Impression: Dog bite Condition: Stable Prescriptions: New Augmentin 500-125 mg tablet 1 tab PO BID Qty: 14 0RF No Action fenofibrate nanocrystallized [Tricor] 145 mg tablet 145 mg PO DAILY Qty: 90 2RF Trulicity 0.75 mg/0.5 mL pen injector 1.5 mg SUBCUT .q weekly Qty: 8 2RF Levemir FlexPen 100 unit/mL (3 mL) insulin pen 50 unit SUBCUT DAILY Qty: 15 3RF fluoxetine 20 mg tablet 20 mg PO DAILY Qty: 30 1RF ondansetron 4 mg tablet,disintegrating 4 mg PO Q8H PRN (Reason: nausea and vomiting) Qty: 20 0RF mupirocin 2 % ointment 1 applic topical DAILY Qty: 22 0RF Jardiance 25 mg tablet 25 mg PO QAM Qty: 90 1RF glipizide 5 mg tablet extended release 24hr See Rx Instructions .ROUTE .COMPLEX Qty: 270 1RF Dose Instruction: Take 3 tablets by mouth once daily Rx Instructions: Take 3 tablets by mouth once daily (DME) pen needle, diabetic 33 gauge x 5/32 needle See Rx Instructions .ROUTE .MEDSUPPLY Qty: 100 5RF Rx Instructions: 1 time day atorvastatin [Lipitor] 40 mg tablet 40 mg PO DAILY Qty: 90 2RF gabapentin 300 mg capsule 300 mg PO DAILY Qty: 60 0RF losartan 50 mg tablet 50 mg PO DAILY Qty: 60 0RF minocycline 100 mg tablet 100 mg PO BID 10 Days Qty: 20 0RF omeprazole 40 mg capsule,delayed release(DR/EC) 40 mg PO DAILY Discharge Orders: Discharge ED (Routine); Ordered 10/08/23 Ordered By: Chely Walls Referrals: Neftaly Keys MD [Primary Care Provider] - 4-7 days Discharge Diet: Advance as tolerated Discharge Activity: Resume usual activity Patient Instructions: Animal Bite (ED) 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
[2023-10-08] MEDS: amoxicillin-clav 500-125 mg Tablet 1 TAB PO (20:20)
[2023-10-08] MEDS: tetanus-dipt-pertussis 0.5 mL SDV IM (20:20)
--- NOTE | 2023-10-08 20:32 | PC.NURSE ---
PT WAS TOLD BY REGISTRATION ABOUT A CO-PAY TO WHICH PT THEN GOT UPSET AND STATED I WON'T PAY IT, I'LL JUST LEAVE WHERE'S THE DOOR. THIS NURSE THEN WALKED INTO ROOM TO PT AND PT STATED HE DID NOT WANT ANY MEDICATIONS GIVEN BECAUSE HE COULDN'T AFFORD THEM. ASKING PT TO TAKE THE MEDICATIONS, PT CONTINUED TO REFUSE. THIS NURSE THEN NOTIFIED DR. GOMEZ OF PT REFUSAL OF MEDICATIONS, THE PRESCRIPTION OF ABT WAS STILL SENT TO PT'S CHOICE OF PHARMACY FOR PT TO TAKE IF PT WANTED TO BAGGAGE AGENT AND TAKE. THIS NURSE THEN TOOK DC PAPERWORK TO PT AND PT THEN DECIDED TO TAKE MEDICATIONS. ALL QUESTIONS ANSWERED THAT PT VOICED. PER PT REQUEST DOG BITE WOUND WAS CLEANSED WITH NS, AND PAT DRY WITH 4X4 GAUZE. PT THEN THANKFUL FOR CARE. DC INSTRUCTIONS WENT OVER WITH PT AND PT'S AT CHAIR SIDE, PT VOICED UNDERSTANDING. DR. GOMEZ NOTIFIED OF PT'S DECISION TO TAKE MEDICATIONS ORDER.
== END 2023-10-08 20:37 | disposition home or self-care (01) ==
PROVIDERS: Emergency Provider Emergency Medicine; PCP Family Medicine
DX: S51.852A Open bite of left forearm, initial encounter (principal); W54.0XXA Bitten by dog, initial encounter; Z79.85 Long-term (current) use of injectable non-insulin antidiabetic drugs; Z79.4 Long term (current) use of insulin; Z79.84 Long term (current) use of oral hypoglycemic drugs; F17.220 Nicotine dependence, chewing tobacco, uncomplicated; E11.9 Type 2 diabetes mellitus without complications; E78.2 Mixed hyperlipidemia; I10 Essential (primary) hypertension; Z23 Encounter for immunization
CPT/HCPCS: 90471; 90715; 99283

== ENCOUNTER 2023-10-11 13:41 | Emergency (ER) | payer MEDICARE, SELFPAY ==
[2023-10-11 14:29] VITALS: BP 121/80; PULSE 84; RESP 16; TEMP 36.7; O2SAT 95; BMI 31.5
--- NOTE | 2023-10-11 14:31 | W.ED.ANIMALB ---
HPI - Animal Bite General: Chief Complaint: Animal Bite Stated Complaint: dog bite left arm Time Seen by Provider: 10/11/23 14:28 History of Present Illness: 63-year-old male patient comes in today for evaluation of dog bite wound. No signs of inflammation or redness is noted to the wound. Patient states that he has yet to start the antibiotics that he was prescribed Sunday. Patient came back for concerns of rabies. Patient's was bit by a neighbors dog and it has not become ill and is continued to be monitored. Patient does not want rabies if it is not necessary. Review of Systems General: Reports: 10 or more systems reviewed and unremarkable except in HPI and below PFSH ED PFSH: Medical History Depression with anxiety Diabetes mellitus with hyperglycemia, with long-term current use of insulin Erectile dysfunction Gout Personal history of nicotine dependence Mixed hyperlipidemia Arthritis Hypertension Surgical History History of colonoscopy with polypectomy History of hernia repair Family History Brother Cancer bone, brain Other Diabetes Hyperlipidemia Hypertension Myocardial infarction Stroke Denies family history of CAD (coronary artery disease) Clotting disorder Dementia Psychiatric illness Chronic kidney disease (CKD) Anesthesia complication Bleeding disorder Lung disease Social History Smoking and tobacco/nicotine status: current every day tobacco/nicotine user smokeless tobacco Smokeless tobacco user: chewing tobacco Second hand smoke exposure: Yes Alcohol intake: never Substance/Drug Use: never Adopted: No Caregiver/support person: No Lives independently: Yes Household members: spouse Housing: House Marital status: Number of children: 3 service: Yes branch: [employer] 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 Neuro: SENSORIUM/ORIENTATION: Yes alert Skin: TRAUMA: abrasion (Left forearm) Course Vital Signs: Vital signs: Vital Signs Temperature 98.0 F 10/11/23 14:29 Pulse Rate 84 10/11/23 14:29 Respiratory Rate 16 10/11/23 14:29 Blood Pressure 121/80 10/11/23 14:29 Pulse Oximetry 95 10/11/23 14:29 Oxygen Delivery Me thod Room Air 10/11/23 14:29 MDM - Animal Bite Medical Decision Making Patient comes in today for concerns of possible need for rabies. Patient was first seen Sunday and after his neighbors dog became aggressive towards him. Nipped him on the left forearm. Patient has a healing wound to the left forearm. No redness or streaking or drainage is noted from the wound. Differential diagnosis includes wound infection, need for prophylaxis rabies, worried well. Reviewed exam with patient with recommendations for continuing to monitor the animal. Patient has a relationship with his neighbor and they will notify him if the pet becomes ill. I recommended that the pat was to become ill or within 10 days he should immediately start the rabies prophylaxis injection series. Patient at this time opted not to go forward with the plan. No radiology studies performed this visit Discharge Plan Discharge Patient Disposition: Home Clinical Impression: Dog bite of arm Qualifiers: Encounter type: subsequent encounter Laterality: left Qualified Code(s): S41.152D - Open bite of left upper arm, subsequent encounter Condition: Stable Prescriptions: No Action fenofibrate nanocrystallized [Tricor] 145 mg tablet 145 mg PO DAILY Qty: 90 2RF Levemir FlexPen 100 unit/mL (3 mL) insulin pen 50 unit SUBCUT DAILY Qty: 15 3RF fluoxetine 20 mg tablet 20 mg PO DAILY Qty: 30 1RF dulaglutide 3 mg/0.5 mL pen injector 3 mg SUBCUT .q weekly Qty: 2 2RF ondansetron 4 mg tablet,disintegrating 4 mg PO Q8H PRN (Reason: nausea and vomiting) Qty: 20 0RF mupirocin 2 % ointment 1 applic topical DAILY Qty: 22 0RF Jardiance 25 mg tablet 25 mg PO QAM Qty: 90 1RF glipizide 5 mg tablet extended release 24hr See Rx Instructions .ROUTE .COMPLEX Qty: 270 1RF Dose Instruction: Take 3 tablets by mouth once daily Rx Instructions: Take 3 tablets by mouth once daily (DME) pen needle, diabetic 33 gauge x 5/32 needle See Rx Instructions .ROUTE .MEDSUPPLY Qty: 100 5RF Rx Instructions: 1 time day atorvastatin [Lipitor] 40 mg tablet 40 mg PO DAILY Qty: 90 2RF gabapentin 300 mg capsule 300 mg PO DAILY Qty: 60 0RF losartan 50 mg tablet 50 mg PO DAILY Qty: 60 0RF minocycline 100 mg tablet 100 mg PO BID 10 Days Qty: 20 0RF omeprazole 40 mg capsule,delayed release(DR/EC) 40 mg PO DAILY Augmentin 500-125 mg tablet 1 tab PO BID Qty: 14 0RF Discharge Orders: Discharge ED (Routine); Ordered 10/11/23 Ordered By: Michael Luna Referrals: Neftaly Keys MD [Primary Care Provider] - Discharge Diet: Usual diet Discharge Activity: Increase activity as tolerated Patient Instructions: Animal Bite (ED) Activity Restrictions/Additional Instructions: Continue monitoring the bite for signs of infection. The dog should be continued to monitor for total of 10 days monitoring for signs of illness. If the dog is killed or becomes ill within the last 10 days return immediately for initiation of tetanus post exposure prophylactic treatment. 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
[2023-10-11 14:58] VITALS: BP 119/81; PULSE 81; RESP 16; TEMP 36.7; O2SAT 96
== END 2023-10-11 14:48 | disposition home or self-care (01) ==
PROVIDERS: Emergency Provider Nurse Practitioner Family; PCP Family Medicine
DX: S51.852A Open bite of left forearm, initial encounter (principal); Z79.4 Long term (current) use of insulin; Z79.84 Long term (current) use of oral hypoglycemic drugs; W54.0XXA Bitten by dog, initial encounter; F17.220 Nicotine dependence, chewing tobacco, uncomplicated; E11.9 Type 2 diabetes mellitus without complications; E78.2 Mixed hyperlipidemia; I10 Essential (primary) hypertension
CPT/HCPCS: 99281

== ENCOUNTER → 2023-11-22 08:39 | Outpatient (BNVA) | payer MEDICARE, SELFPAY | PROVIDERS: PCP Family Medicine; Referring Provider Family Medicine; Visit Provider Psychiatry & Neurology Neurology | DX: R29.818 Other symptoms and signs involving the nervous system (principal); R26.89 Other abnormalities of gait and mobility; R06.81 Apnea, not elsewhere classified; I10 Essential (primary) hypertension; E78.2 Mixed hyperlipidemia; E11.65 Type 2 diabetes mellitus with hyperglycemia; Z79.4 Long term (current) use of insulin | CPT/HCPCS: 99203 ==

== ENCOUNTER 2023-12-03 13:55 | Outpatient (CLI) | payer MEDICARE, SELFPAY ==
--- NOTE | 2023-12-03 15:00 | USCV_ITS ---
Otis Avila Age: 63 Gender: M : 1960 Exam Date: 12/03/2023 14:30 Ordering Phys: Kong Hooker MD Technologist: DONTA Exam Location: [facility] – [place] Indication: Dizziness Risk Factors: Previous Vascular Surgery: Right Brachial BP: / Left Brachial BP: / Right Left Velocity (cm/s) Spectral Plaque Velocity (cm/s) Spectral Plaque Syst/Diast Broadening Syst/Diast Broadening 131.20/14.40 Prox CCA 136.90/ 23.90 107.50/19.90 Mid CCA 92.50 / 17.00 103.90/21.70 Distal CCA 82.50 / 14.60 39.90/ 14.20 Prox ICA 40.20 / 12.40 58.60/ 18.30 Mid ICA 65.10 / 20.40 42.10/ 15.90 Distal ICA 85.20 / 28.70 58.10 ECA 39.40 0.60 ICA/CCA 1.00 Antegrade Vertebral Antegrade 58.00/ 19.60 cm/s 45.10/ 8.40 cm/s Bi Subclavian Tri 74.60 179.2 0 CONCLUSIONS Right ICA stenosis <50%. Mild atheromatous plaque right carotid bulb/ICA. Left ICA stenosis <50%. Mild atheromatous plaque left carotid bulb/ICA. Normal antegrade Doppler flow noted in the right vertebral artery. Normal antegrade Doppler flow noted in the left vertebral artery. Jonathon Shi MD (Electronically Signed) Final Date: 03 December 2023 15:23 S
== END 2023-12-03 13:56 | disposition home or self-care (01) ==
LOC: RAD 13:56
PROVIDERS: PCP Family Medicine; Visit Provider Psychiatry & Neurology Neurology
DX: R42 Dizziness and giddiness (principal)
CPT/HCPCS: 36415; 81241; 82306; 82607; 82746; 83090; 83735; 83921; 84425; 85210; 85300; 85306; 86140; 86146; 86147; 86592; 93880

== ENCOUNTER 2023-12-31 12:52 | Outpatient (CLI) | payer MEDICARE, SELFPAY ==
--- NOTE | 2023-12-31 13:00 | MR_ITS ---
WS: [id number] MRI BRAIN WITH AND WITHOUT CONTRAST HISTORY: R26.89 - Other abnormalities of gait and mobility COMPARISON: CT head 06/05/2023 TECHNIQUE: Multiplanar imaging performed through the brain with [employer] IV. No acute infarcts are seen. Courtney-white matter differentiation is well preserved. Mild volume loss and very mild small vessel disease. Normal hippocampal formations.. No susceptibility artifacts or prior lacunar infarcts. Ventricles and extra-axial spaces are normal. Clivus and pituitary gland are normal. Visualized posterior fossa and brainstem are also normal. Postcontrast images are negative for masses or vascular malformations. Dural venous sinuses are normal. Paranasal sinuses: Mild mucoperiosteal thickening RIGHT maxillary sinus. No air-fluid levels. Mild fr ontal sinus mucoperiosteal thickening. Mastoid air cells: Normal. Calvarium and scalp: Normal. MR/MR head wo/w con [id number] IMPRESSION: 1. No acute infarct. No enhancing mass. 2. Mild volume loss and mild small vessel disease. 3. Maxillary frontal sinus mucoperiosteal thickening. No air-fluid levels.
[2023-12-31] MEDS: gadobenate dimeglumine 5 mL vial IV (13:15)
== END 2023-12-31 12:53 | disposition home or self-care (01) ==
LOC: RAD 12:53
PROVIDERS: PCP Family Medicine; Visit Provider Psychiatry & Neurology Neurology
DX: R26.89 Other abnormalities of gait and mobility (principal); J32.0 Chronic maxillary sinusitis
CPT/HCPCS: 70553; 86780

== ENCOUNTER → 2024-01-01 11:05 | Outpatient (BNVA) | payer MEDICARE, SELFPAY | PROVIDERS: PCP Family Medicine; Visit Provider Family Medicine | DX: Z79.4 Long term (current) use of insulin (principal); E11.65 Type 2 diabetes mellitus with hyperglycemia | CPT/HCPCS: 80053; 83036 ==

== ENCOUNTER → 2024-02-28 07:51 | Outpatient (BNVA) | payer MEDICARE, SELFPAY | PROVIDERS: PCP Family Medicine; Visit Provider Psychiatry & Neurology Neurology | DX: R56.9 Unspecified convulsions (principal); R55 Syncope and collapse | CPT/HCPCS: 95819 ==

== ENCOUNTER → 2024-03-27 08:46 | Outpatient (BNVA) | payer MEDICARE, SELFPAY | PROVIDERS: PCP Family Medicine; Referring Provider Psychiatry & Neurology Neurology; Visit Provider Internal Medicine | DX: E11.65 Type 2 diabetes mellitus with hyperglycemia (principal); Z79.4 Long term (current) use of insulin; E78.2 Mixed hyperlipidemia; N52.9 Male erectile dysfunction, unspecified; Z12.5 Encounter for screening for malignant neoplasm of prostate; Z79.84 Long term (current) use of oral hypoglycemic drugs | CPT/HCPCS: 99204 ==

== ENCOUNTER → 2024-03-31 11:45 | Outpatient (BNVA) | payer MEDICARE, SELFPAY | PROVIDERS: PCP Family Medicine; Visit Provider Internal Medicine | DX: Z12.5 Encounter for screening for malignant neoplasm of prostate (principal); E11.65 Type 2 diabetes mellitus with hyperglycemia; Z79.4 Long term (current) use of insulin; E78.2 Mixed hyperlipidemia; N52.9 Male erectile dysfunction, unspecified | CPT/HCPCS: 80053; 80061; 82043; 83036; 84146; 84403; 85025; G0103 ==

== ENCOUNTER → 2024-04-09 08:53 | Outpatient (BNVA) | payer MEDICARE, SELFPAY | PROVIDERS: PCP Family Medicine; Visit Provider Internal Medicine | DX: E11.65 Type 2 diabetes mellitus with hyperglycemia (principal); Z79.4 Long term (current) use of insulin; E78.2 Mixed hyperlipidemia; N52.9 Male erectile dysfunction, unspecified | CPT/HCPCS: 84403 ==

== ENCOUNTER → 2024-04-10 11:05 | Outpatient (BNVA) | payer MEDICARE, SELFPAY | PROVIDERS: PCP Family Medicine; Visit Provider Internal Medicine | DX: E11.65 Type 2 diabetes mellitus with hyperglycemia (principal); Z79.4 Long term (current) use of insulin; E78.2 Mixed hyperlipidemia; N52.9 Male erectile dysfunction, unspecified; R80.9 Proteinuria, unspecified | CPT/HCPCS: 99215 ==

== ENCOUNTER → 2024-05-14 14:37 | Outpatient (BNVA) | payer MEDICARE, SELFPAY | PROVIDERS: PCP Family Medicine; Visit Provider Psychiatry & Neurology Neurology | DX: E55.9 Vitamin D deficiency, unspecified (principal); R29.818 Other symptoms and signs involving the nervous system; R55 Syncope and collapse; R06.81 Apnea, not elsewhere classified; R80.9 Proteinuria, unspecified; M79.606 Pain in leg, unspecified; R26.89 Other abnormalities of gait and mobility; M10.9 Gout, unspecified; I10 Essential (primary) hypertension; R29.90 Unspecified symptoms and signs involving the nervous system | CPT/HCPCS: 36415; 82306; 82607; 82746; 83921; 85300; 85303; 85306; 86592; 99212 ==

== ENCOUNTER → 2024-07-04 12:27 | Outpatient (BNVA) | payer MEDICARE, SELFPAY | PROVIDERS: PCP Family Medicine; Visit Provider Internal Medicine | DX: E11.65 Type 2 diabetes mellitus with hyperglycemia (principal); N52.9 Male erectile dysfunction, unspecified; E78.2 Mixed hyperlipidemia; R80.9 Proteinuria, unspecified; Z79.4 Long term (current) use of insulin | CPT/HCPCS: 36415; 80053; 80061; 82044; 83036; 84681; 86337; 86341 ==

== ENCOUNTER → 2024-07-18 10:38 | Outpatient (BNVA) | payer MEDICARE, SELFPAY | PROVIDERS: PCP Family Medicine; Visit Provider Internal Medicine | DX: R07.9 Chest pain, unspecified (principal) | CPT/HCPCS: 93005 ==

== ENCOUNTER 2024-09-01 08:44 | Outpatient (CLI) | payer MEDICARE, SELFPAY ==
[2024-09-01 09:21] VITALS: BMI 30.7
--- NOTE | 2024-09-01 09:21 | ECG_ITS ---
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 Interpretive Statements LEXISCAN SESTAMIBI STRESS TEST Procedure: At the baseline, the blood pressure was 128/90 mmHg with a heart rate of 65 bpm. The electrocardiogram showed normal sinus rhythm, normal axis with normal ST and T's. The Lexiscan was infused over a period of 20 seconds. A total of 0.4 mg of Lexiscan was infused. The stress phase was continued for a total of 5 minutes. Heart rate was at the end of stress phase was 73 bpm and a blood pressure of 130/83 mmHg. The EKG at the peak infusion revealed normal sinus rhythm with no significant ST-T wave changes. Sestamibi was injected 20 seconds after the Lexiscan infusion. Blood pressure at the end of recovery phase was 138/88 mmHg with a heart rate of 75 bpm. Conclusion: 1. Normal EKG response to Lexiscan infusion 2. No Lexiscan induced chest pain or cardiac arrhythmia. 3. Normal blood pressure and heart rate response. 4. Sestamibi/sestamibi perfusion scan pending; see separate report. Electronically Signed On 09-06-2024 11:53:04 CDT by Sy Ruiz M.D. [email or web address]
--- NOTE | 2024-09-01 09:21 | NMCV_ITS ---
NM marin perf SPECT r/s* [id number] Otis Avila Age: 64 Gender: M : 1960 Exam Date: 09/01/2024 09:45 Ordering Phys: Sy Ruiz M.D ([email or web address]) Technologist: EVELYN Patton Exam Location: [facility] Indications: cp STRESS TEST Please see separate stress test report in [facility] for full findings IMAGE PROTOCOL Rest/Stress 1 Lexiscan Day Radiopharmaceutical Dose (mCi) Administration Site Administered by Rest: Tc-99m 10.4 IV EVELYN Patton Sestamibi Stress:Tc-99m 33 IV Ronna Queen, HVAC FIELD SERVICE TECHNICIAN Sestamibi Rest: 01-Sep-2024 60 Discovery 630 Stress: 01-Sep-2024 30 Discovery 630 0.4mg Lexiscan. Images obtained in supine and prone position. SPECT RESULTS Technical Quality: Good Raw Data Analysis: Normal Image Corrections: No attenuation or motion correction applied Summed Stress Score: 3 Summed Rest Score: 5 Summed Difference Score: 0 PERFUSION FINDINGS Large area of fixed perfusion defect noted in basal to distal inferior wall without ishaan-infarct ischemia. This study is negative for ischemia and suggestive of possible old myocardial infarction versus artifact in the absence of wall motion abnormality FUNCTIONAL RESULTS (calculated via Gated SPECT) Stress Image LV EF (%): 77 Stress EDV (mL):69 TID: 0.91 Stress ESV (mL):16 FUNCTIONAL FINDINGS: There is normal left ventricular systolic function. IMPRESSIONS Possible old myocardial infarction versus scarring noted in the basal distal inferior wall without ishaan-infarct ischemia. This study is negative for ischemia. Anam Vigil MD (Electronically Signed) Final Date: 04 Sep 2024 21:41 S
[2024-09-01] MEDS: regadenoson 0.4 Mg/5 ml Syringe IVP (10:12)
[2024-09-01 10:33] VITALS: BP 138/86; PULSE 69
--- NOTE | 2024-09-01 14:15 | USCV_ITS ---
Otis Avila Age: 64 Gender: M : 1960 Exam Date: 09/01/2024 11:37 Ordering Phys: Sy Ruiz M.D ([email or web address]) Technologist: Exam Location[place] [facility] [place] Indication: cp sob BP: 120 / 80 HR: 61 Rhythm: Sinus Technical Quality: Adequate MEASUREMENTS (Male / Female) Normal Values 2D ECHO LV Diastolic Diameter PLAX 4.2 cm 4.2 - 5.9 / 3.9 - 5.3 cm IVS Diastolic Thickness 1.3 cm 0.6 - 1.0 / 0.6 - 0.9 cm IVS Systolic Thickness 1.6 cm LVPW Diastolic Thickness 1.3 cm 0.6 - 1.0 / 0.6 - 0.9 cm LVPW Systolic Thickness 1.7 cm LVOT Diameter 2.0 cm LV Ejection Fraction 2D Teich 63.6 % LV Ejection Fraction MOD 4C 73.1 % LV Ejection Fraction MOD 2C 72.3 % LV Ejection Fraction 2C AL 72.0 % LA Diameter 3.0 cm RA Systolic Volume 4C AL 43.8 ml RA Systolic Volume 4C MOD 43.0 ml LA Sys Volume AL 42.7 cm cubed LA Sys Volume Index AL 19.3 cm cubed/m squared Aorta at Sinotubular Diameter 3.2 cm IVC Diameter 1.5 cm M-MODE LA Ao Ratio MM 1.2 AV Cusp Separation MM 2.7 cm DOPPLER AV Peak Velocity 117.0 cm/s LVOT Peak Velocity 74.0 cm/s AV Area Cont Eq vti 2.4 cm squared AV Area Cont Eq pk 2.0 cm squared MV Peak Velocity 72.0 cm/s MV Area PHT 3.1 cm squared Mitral E to A Ratio 1.0 TV Peak Velocity 155.5 cm/s TR Peak Velocity 162.0 cm/s TR Peak Gradient 10.5 mmHg TV Peak E Velocity 88.0 cm/s PV Peak Velocity 120.0 cm/s FINDINGS Left Ventricle Left ventricle is normal in size. LV systolic function is normal with EF of 55-60%. No regional wall motion abnormalities are seen. Right Ventricle Normal in size and function Right Atrium Normal in size Left Atrium Normal in size Mitral Valve Structurally normal mitral valve. Mild mitral regurgitation Aortic Valve Structurally normal aortic valve. No significant stenosis or regurgitation. Tricuspid Valve Insufficient TR jet to calculate RVSP. Pulmonic Valve Not well visualized Pericardium Normal Aorta Normal in size IVC Appears to be normal CONCLUSIONS LV systolic function is normal with EF of 55 to 60%. Mild mitral regurgitation. Sy Ruiz MD (Electronically Signed) Final Date: 07 Sep 2024 13:54 S
== END 2024-09-01 08:45 | disposition home or self-care (01) ==
LOC: CDL 08:47
PROVIDERS: PCP Family Medicine; Visit Provider Internal Medicine
DX: R06.02 Shortness of breath (principal); R55 Syncope and collapse; R42 Dizziness and giddiness; I34.0 Nonrheumatic mitral (valve) insufficiency; R93.1 Abnormal findings on diagnostic imaging of heart and coronary circulation
CPT/HCPCS: 36415; 78452; 93017; 93306; 96374; A9500; J2785

== ENCOUNTER → 2024-09-02 10:21 | Outpatient (BNVA) | payer MEDICARE, SELFPAY | PROVIDERS: PCP Family Medicine; Visit Provider Internal Medicine | DX: E11.65 Type 2 diabetes mellitus with hyperglycemia (principal); Z79.4 Long term (current) use of insulin; E78.2 Mixed hyperlipidemia | CPT/HCPCS: 99214 ==

== ENCOUNTER 2024-09-05 11:51 | Outpatient (CLI) | payer MEDICARE, SELFPAY ==
--- NOTE | 2024-09-05 12:15 | CTR_ITS ---
PROCEDURE INFORMATION: Exam: CT Chest Without Contrast; Diagnostic Exam date and time: 09/05/2024 12:26 PM Age: 64 years old Clinical indication: Condition or disease; Lung condition and disease; Pulmonary nodule, solitary TECHNIQUE: Imaging protocol: Diagnostic computed tomography of the chest without contrast. Radiation optimization: All CT scans at this facility use at least one of these dose optimization techniques: automated exposure control; mA and/or kV adjustment per patient size (includes targeted exams where dose is matched to clinical indication); or iterative reconstruction. COMPARISON: CT lung screening [id number] 10/18/2022 2:11 PM RADIATION DOSE METRICS: Total DLP (mGy-cm): 580.65 FINDINGS: Lungs: Tiny calcified granuloma in the right upper lobe. No suspicious or enlarging pulmonary masses on either side. The largest nodule is subpleural and at the left lung base (5:32) and is unchanged. Mild hypoventilatory changes at the lung bases. Pleural spaces: Unremarkable. No pneumothorax. No pleural effusion. Heart: Unremarkable. No cardiomegaly. No pericardial effusion. Lymph nodes: Unremarkable. No enlarged lymph nodes. Vasculature: Unremarkable. No aortic aneurysm. Bones/joints: Unremarkable. No acute fracture. Soft tissues: Unremarkable. CT/CT chest wo con [id number] IMPRESSION: No acute findings.
== END 2024-09-05 11:52 | disposition home or self-care (01) ==
LOC: RAD 11:54
PROVIDERS: PCP Family Medicine; Visit Provider Family Medicine
DX: R91.1 Solitary pulmonary nodule (principal); R91.8 Other nonspecific abnormal finding of lung field
CPT/HCPCS: 71250

== ENCOUNTER → 2024-09-11 11:35 | Outpatient (BNVA) | payer MEDICARE, SELFPAY | PROVIDERS: PCP Family Medicine; Visit Provider Internal Medicine | DX: R07.89 Other chest pain (principal); R55 Syncope and collapse; I10 Essential (primary) hypertension; E78.2 Mixed hyperlipidemia | CPT/HCPCS: 99214 ==

== ENCOUNTER → 2024-09-24 12:42 | Outpatient (BNVA) | payer MEDICARE, SELFPAY | PROVIDERS: PCP Family Medicine; Visit Provider Family Medicine | DX: E11.65 Type 2 diabetes mellitus with hyperglycemia (principal); E78.2 Mixed hyperlipidemia; N52.9 Male erectile dysfunction, unspecified; R80.9 Proteinuria, unspecified; Z79.4 Long term (current) use of insulin | CPT/HCPCS: 80053; 80061; 82043; 83036 ==

== ENCOUNTER → 2024-10-03 09:51 | Outpatient (BNVA) | payer MEDICARE, SELFPAY | PROVIDERS: PCP Family Medicine; Visit Provider Internal Medicine | DX: E11.65 Type 2 diabetes mellitus with hyperglycemia (principal); Z79.4 Long term (current) use of insulin; E78.2 Mixed hyperlipidemia | CPT/HCPCS: 99214 ==

== ENCOUNTER → 2025-01-01 09:34 | Outpatient (BNVA) | payer MEDICARE, SELFPAY | PROVIDERS: PCP Family Medicine; Visit Provider Internal Medicine | DX: E11.65 Type 2 diabetes mellitus with hyperglycemia (principal); Z79.4 Long term (current) use of insulin; E78.2 Mixed hyperlipidemia; N52.9 Male erectile dysfunction, unspecified; R80.9 Proteinuria, unspecified | CPT/HCPCS: 99214 ==

== ENCOUNTER → 2025-01-02 10:10 | Outpatient (BNVA) | payer MEDICARE, SELFPAY | PROVIDERS: PCP Family Medicine; Visit Provider Internal Medicine | DX: E11.65 Type 2 diabetes mellitus with hyperglycemia (principal); R80.9 Proteinuria, unspecified; E78.2 Mixed hyperlipidemia; Z79.4 Long term (current) use of insulin | CPT/HCPCS: 80053; 80061; 82043; 83036; 83721 ==

== ENCOUNTER → 2025-04-07 15:43 | Outpatient (BNVA) | payer MEDICARE, SELFPAY | PROVIDERS: PCP Family Medicine; Visit Provider Internal Medicine Endocrinology, Diabetes & Metabolism | DX: E11.65 Type 2 diabetes mellitus with hyperglycemia (principal); Z79.4 Long term (current) use of insulin; E78.2 Mixed hyperlipidemia; N52.9 Male erectile dysfunction, unspecified; R80.9 Proteinuria, unspecified | CPT/HCPCS: 99214 ==

== ENCOUNTER → 2025-04-08 09:37 | Outpatient (BNVA) | payer MEDICARE, SELFPAY | PROVIDERS: PCP Family Medicine; Visit Provider Internal Medicine | DX: E11.65 Type 2 diabetes mellitus with hyperglycemia (principal); R80.9 Proteinuria, unspecified; N52.9 Male erectile dysfunction, unspecified; E78.2 Mixed hyperlipidemia; Z79.4 Long term (current) use of insulin | CPT/HCPCS: 80053; 80061; 82043; 83036 ==

== ENCOUNTER → 2025-04-13 14:51 | Outpatient (BNVA) | payer MEDICARE, SELFPAY | PROVIDERS: PCP Family Medicine; Visit Provider Internal Medicine Endocrinology, Diabetes & Metabolism | DX: E11.65 Type 2 diabetes mellitus with hyperglycemia (principal); Z79.4 Long term (current) use of insulin; E78.2 Mixed hyperlipidemia; N52.9 Male erectile dysfunction, unspecified; R80.9 Proteinuria, unspecified | CPT/HCPCS: 99214 ==